=== PATIENT | female | born 1970 ===

== ENCOUNTER 2017-04-08 21:17 | Observation (INO) | payer OTHER ==
[2017-04-08] MEDS ORDERED: Sodium Chloride 0.9% 1,000 ML IV STA (23:58)
--- NOTE | 2017-04-09 | ED PDOC ---
Arrival/HPI - General Chief Complaint: Dizziness/Lightheaded Time Seen by Provider: 04/08/17 22:48 Historian: Patient - History of Present Illness Narrative History of Present Illness (Text): 04/09/17 00:01 46 y/o female, no pmh, nkda, [id number], c/ o dizziness/shortness of breath and near syncope x 4-5 hours. Pt. 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 Pt. has no chest pain or palpitation but feeling like about to pass out. Pt. has no slurred speech, no headache, no numbness or tingling, no sudden weakness, no other medical or psychological complaints. Past Medical History - Provider Review Nursing Documentation Reviewed: Yes - Psychiatric Hx Psychophysiologic Disorder: No Hx Substance Use: No Family/Social History - Physician Review Nursing Documentation Reviewed: Yes Family/Social History: Unknown Family HX Smoking Status: Never Smoked Hx Alcohol Use: No Hx Substance Use: No Allergies/Home Meds Allergies/Adverse Reactions: Allergies No Known Allergies Allergy (Verified 04/08/17 23:57) Review of Systems - Review of Systems Constitutional: absent: Fatigue, Fevers Eyes: absent: Vision Changes Respiratory: SOB. absent: Cough, Sputum Cardiovascular: absent: Chest Pain Gastrointestinal: absent: Abdominal Pain, Diarrhea, Nausea, Vomiting Musculoskeletal: absent: Arthralgias, Back Pain, Myalgias Neurological: Dizziness. absent: Focal Weakness, Gait Changes, Speech Changes, Facial Droop, Seizure Physical Exam Vital Signs Reviewed: Yes Vital Signs Pulse Resp BP Pulse Ox 04/09/17 04:33 69 16 111/66 99 04/09/17 02:13 72 16 99 04/08/17 23:48 81 16 137/86 99 04/08/17 23:17 81 16 137/86 99 Temperature: Afebrile Blood Pressure: Normal Pulse: Regular Respiratory Rate: Normal Appearance: Positive for: Well-Appearing, Non-Toxic, Comfortable Pain Distress: None Mental Status: Positive for: Alert and Oriented X 3 - Systems Exam Head: Present: Atraumatic, Normocephalic Pupils: Present: PERRL Extroacular Muscles: Present: EOMI Conjunctiva: Present: Normal Mouth: Present: Moist Mucous Membranes Neck: Present: Normal Range of Motion Respiratory/Chest: Present: Clear to Auscultation, Good Air Exchange. No: Respiratory Distress, Accessory Muscle Use Cardiovascular: Present: Regular Rate and Rhythm, Normal S1, S2. No: Murmurs Abdomen: Present: Normal Bowel Sounds. No: Tenderness, Distention, Peritoneal Signs Back: Present: Normal Inspection Upper Extremity: Present: Normal Inspection. No: Cyanosis, Edema Lower Extremity: Present: Normal Inspection. No: Edema Neurological: Present: GCS=15, CN II-XII Intact, Speech Normal, Motor Func Grossly Intact, Gait Normal, Memory Normal Skin: Present: Warm, Dry, Normal Color. No: Rashes Psychiatric: Present: Alert, Oriented x 3, Normal Insight, Normal Concentration Medical Decision Making ED Course and Treatment: 04/09/17 00:07 -labs/ua/cardiac troponin -ekg/chest xray -CT head -IVF/aspirin lorena give after the negative CT head for bleed -NIHSS is: 0, not a candidate for TPA 04/09/17 04:06 -EKG:NSR @ 66 BPM, no ST elevation or depression, no T wave inversion. -Chest x-ray show no active disease -CT head show no acute findings, aspiring 325mg po ordered -Labs are non-significant, 1st set of troponin is negative, will need 24 hours cardiac enzymes. -I explained to the patient and she agreed to be observed over night. -Dr. Mccauley spoke to Dr. Baugh and agreed to follow up the case. Dr. Mccauley will put in the admission order. -I spoke to Dr. Jones, territory sales manager medical, will come to evaluate the patient - Lab Interpretations Lab Results: 04/08/17 23:59 04/08/17 23:59 Lab Results 04/09/17 03:02: Urine Color Yellow, Urine Appearance Sl cloudy, Urine pH 6.0, Ur Specific [place] 1.015, Urine Protein Trace H, Urine Glucose (UA) Negative, Urine Ketones Negative, Urine Blood Large H, Urine Nitrate Negative, Urine Bilirubin Negative, Urine Urobilinogen 0.2, Ur Leukocyte Esterase Negative, Urine RBC 1 - 3, Urine WBC 0 - 2, Ur Epithelial Cells 3 - 4, Urine Bacteria Small 04/08/17 23:59: Sodium 141, Potassium 4.2, Chloride 102, Carbon Dioxide 26, Anion Gap 17, BUN 13, Creatinine 0.7, Est GFR ( Amer) > 60, Est GFR (Non- Af Amer) > 60, Random Glucose 78, Calcium 9.5, Total Bilirubin 0.5, AST 44 H, ALT 42, Alkaline Phosphatase 100, Lactate Dehydrogenase 501, Total Creatine Kinase 167, Troponin I < 0.01, Total Protein 9.0 H, Albumin 4.9 H, Globulin 4.1 , Albumin/Globulin Ratio 1.2 04/08/17 23:59: WBC 9.4, RBC 4.44, Hgb 13.5, Hct 38.6, MCV 86.9, MCH 30.4, MCHC 35.0, RDW 12.6, Plt Count 277, MPV 9.9, Gran % 65.1, Lymph % (Auto) 25.0, Pender % (Auto) 6.3 H, Eos % (Auto) 3.5, Baso % (Auto) 0.1, Gran # 6.14, Lymph # 2.4, Pender # 0.6, Eos # 0.3, Baso # 0.01 I have reviewed the lab results: Yes Interpretation: No clinic. lab abnormalty - RAD Interpretation Radiology Orders: 04/08/17 23:58 HEAD W/O CONTRAST [CT] Stat CHEST PORTABLE [RAD] Stat CT Head: FINDINGS: Brain: No intracranial hemorrhage. No mass. No definite edema. Ventricles: No hydrocephalus. Bones/joints: No acute fracture. Soft tissues: Unremarkable. Sinuses: No acute sinusitis. Mastoid air cells: No mastoid effusion. Orbits: Unremarkable as visualized. IMPRESSION: 1. No acute intracranial abnormality. 2. Incidental/non-acute findings are described above. Thank you for allowing us to participate in the care of your patient. Dictated and Authenticated by: Niall Dodson MD 04/09/2017 3:55 AM Eastern Time ([place] & [place]) Chest x-ray: no acute infiltrate. Bathroom Tiling Professional: Radiologist - EKG Interpretation EKG Interpretation (Text): 04/09/17 01:54 NSR @ 66 BPM, no ST elevation or depression, no T wave inversion. Interpreted by ED Physician: Yes Type: 12 lead EKG Comparison: No previous EKG avail. - Medication Orders Current Medication Orders: Discontinued Medications Aspirin (Aspirin) 325 mg PO STAT STA Stop: 04/09/17 03:57 Last Admin: 04/09/17 04:40 Dose: 325 mg Sodium Chloride (Sodium Chloride 0.9%) 1,000 mls @ 999 mls/hr IV .Q1H1M STA Stop: 04/09/17 00:58 Last Admin: 04/09/17 01:02 Dose: 999 mls/hr Sodium Chloride (Sodium Chloride 0.9%) 1,000 mls @ 150 mls/hr IV .Q6H40M [facility] Last Admin: 04/09/17 06:22 Dose: 150 mls/hr Pantoprazole Sodium (Protonix Inj) 40 mg IVP DAILY [facility] Last Admin: 04/10/17 09:43 Dose: 40 mg NIHSS Scale (Ong) Time Performed: 00:07 - How Severe is the Stoke Baseline Level of Consciousness: 0=Alert LOC to Questions: 0=Both comments correct LOC to commands: 0=Obeys both correctly Best Gaze: 0=Normal Visual: 0=No visual loss Facial: 0=Normal Motor Arm - Left: 0=No drift Motor Arm - Right: 0=No drift Motor Leg - Left: 0=No drift Motor Leg - Right: 0=No drift Limb Ataxia: 0=Absent Sensory: 0=Normal Best Language: 0=No aphasia Dysarthia: 0=Normal articulation Extinction & Inattention (Neglect): 0=Normal, no object Score: 0 Risk Level: No Stroke Risk - PA / PUBLIC HOUSING MANAGER / Resident Statement MD/DO has reviewed & agrees with the documentation as recorded. MD/DO has examined the patient and agrees with the treatment plan. Disposition/Present on Arrival - Present on Arrival Any Indicators Present on Arrival: No History of DVT/PE: No History of Uncontrolled Diabetes: No Urinary Catheter: No History of Decub. Ulcer: No History Surgical Site Infection Following: None - Disposition Have Diagnosis and Disposition been Completed?: Yes Diagnosis: Near syncope, Shortness of breath, Dizziness Disposition: HOSPITALIZED Disposition Time: 00:09 Patient Plan: Observation, Telemetry Condition: STABLE
[2017-04-09 00:59] LABS: BASO # 0.01 K/mm3 (0.0-2.0); BASO % 0.1 % (0.0-3.0); EOS # 0.3 (0.0-0.7); EOS % 3.5 % (1.5-5.0); GRAN # 6.14 (1.4-6.5); GRAN % 65.1 % (50.0-68.0); HEMOGLOBIN 13.5 gm/dL (12.0-16.0); LYMPH # 2.4 (1.2-3.4); MEAN CELL VOLUME 86.9 fL (80.0-105.0); MEAN CORPUSCULAR HEMOGLOBIN 30.4 pg (25.0-35.0); MEAN PLATELET VOLUME 9.9 fl (7.0-11.0); MONO # 0.6 (0.1-0.6); MONO % 6.3 % (1.0-6.0); PLATELET COUNT 277 10^3/uL (120.0-450.0); RBC 4.44 10^6/uL (3.5-6.1); RED CELL DISTRIBUTION WIDTH 12.6 % (11.5-14.5); WHITE BLOOD COUNT 9.4 10^3/ul (4.5-11.0)
[2017-04-09 01:10] LABS: ALB/GLOB RATIO 1.2 (1.1-1.8); ALBUMIN 4.9 g/dL (3.0-4.8); ALT/SGPT 42 U/L (7-56); AST/SGOT 44 U/L (15-39); BLOOD UREA NITROGEN 13 mg/dL (7-21); CALCIUM 9.5 mg/dL (8.4-10.5); GFR AFRICAN-AMERICAN > 60; GFR NON-AFRICAN AMERICAN > 60
[2017-04-09 01:26] LABS: TROPONIN I < 0.01 ng/mL
--- NOTE | 2017-04-09 03:56 | CT ---
EXAM: CT Head Without Intravenous Contrast CLINICAL HISTORY: 46 years old, female; Signs and symptoms; Syncope and collapse; Additional info: Near syncope x 4-5 hours TECHNIQUE: Axial computed tomography images of the head/brain without intravenous contrast. This CT exam was performed using one or more of the following dose reduction techniques: automated exposure control, adjustment of the mA and/or kV according to patient size, and/or use of iterative reconstruction technique. COMPARISON: No relevant prior studies available. FINDINGS: Brain: No intracranial hemorrhage. No mass. No definite edema. Ventricles: No hydrocephalus. Bones/joints: No acute fracture. Soft tissues: Unremarkable. Sinuses: No acute sinusitis. Mastoid air cells: No mastoid effusion. Orbits: Unremarkable as visualized. IMPRESSION: 1. No acute intracranial abnormality. 2. Incidental/non-acute findings are described above.
[2017-04-09 04:13] LABS: URINE BILIRUBIN NEGATIVE (NEGATIVE); URINE BLOOD LARGE (NEGATIVE); URINE GLUCOSE (UA) NEGATIVE (NEGATIVE); URINE LEUKOCYTE ESTERASE NEGATIVE Leu/uL (NEGATIVE); URINE NITRATE NEGATIVE (NEGATIVE); URINE PROTEIN TRACE mg/dL (<30 mg/dL); URINE UROBILINOGEN 0.2 E.U./dL (<1 E.U./dL)
[2017-04-09 04:18] LABS: URINE APPEARANCE SL CLOUDY (CLEAR); URINE COLOR YELLOW (YELLOW)
[2017-04-09 04:23] LABS: URINE BACTERIA SMALL (NEG); URINE WBC 0 - 2 /hpf (0-6)
[2017-04-09] MEDS ORDERED: Sodium Chloride 0.9% 1,000 ML IV SCH (05:15)
--- NOTE | 2017-04-09 05:36 | CP.PCM.HP ---
<MAXWELL GARZON - Last Filed: 04/09/17 05:48> History of Present Illness - History of Present Illness History of Present Illness: CC: Dizziness/Near Syncope HPI: Mrs. Cortes is a 46 year old female with no significant past medical history presented to the ED after she had an episode of dizziness at work. At around 2030, she was cleaning a machine and after standing in the same position for 20 minutes she states that the room started spinning. She was nauseous during this episode and vomited once, noted to be NBNB. She then went outside to get "some fresh air" and felt immediately better. 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 An EKG, CT Head and orthostatic vital signs were all normal in the ED. Currently, patient is asymptomatic. She denies any dizziness, fever, headache, changes in her vision, dysphagia, chest pain, palpitations, shortness of breath , N/V or abdominal pain. PMH: None PSH: "Tubes tied" in [facility] approx. 20 years ago FH: Non-Contributory Social History: Denies tobacco, alcohol or illicit drug use Allergies: NKDA Home meds: none Present on Admission - Present on Admission Any Indicators Present on Admission: No Review of Systems - Review of Systems Review of Systems: Please refer to HPI Past Patient History - Past Social History Smoking Status: Never Smoked - PSYCHIATRIC Hx Psychophysiologic Disorder: No Hx Substance Use: No Meds Allergies/Adverse Reactions: Allergies Allergy/AdvReac Type Severity Reaction Status Date / Time No Known Allergies Allergy Verified 04/08/17 23:57 Physical Exam - Constitutional Appears: No Acute Distress - Head Exam Head Exam: NORMAL INSPECTION, NORMOCEPHALIC - Eye Exam Eye Exam: EOMI, Normal appearance - ENT Exam ENT Exam: Mucous Membranes Moist, Normal Exam - Neck Exam Neck exam: Positive for: Full Rom. Negative for: Tenderness - Respiratory Exam Respiratory Exam: Clear to Auscultation Bilateral, NORMAL BREATHING PATTERN. absent: Rales, Rhonchi, Wheezes, Respiratory Distress - Cardiovascular Exam Cardiovascular Exam: REGULAR RHYTHM, RRR, +S1, +S2. absent: Tachycardia, Systolic Murmur - GI/Abdominal Exam GI & Abdominal Exam: Normal Bowel Sounds, Soft. absent: Distended, Firm, Guarding, Tenderness - Extremities Exam Extremities exam: Positive for: normal capillary refill, pedal pulses present. Negative for: calf tenderness, pedal edema, tenderness - Neurological Exam Neurological exam: Alert, CN II-XII Intact, Oriented x3 - Psychiatric Exam Psychiatric exam: Normal Affect, Normal Mood - Skin Skin Exam: Dry, Intact, Normal Color, Warm Results - Vital Signs Recent Vital Signs: Last Vital Signs Temp Pulse 69 04/09/17 04:33 Resp 16 04/09/17 04:33 BP 111/66 04/09/17 04:33 Pulse Ox 99 04/09/17 04:33 - Labs Result Diagrams: 04/08/17 23:59 04/08/17 23:59 Assessment & Plan - Assessment and Plan (Free Text) Assessment: Mrs. Cortes is a 46 year old female with no significant past medical history presented to the ED after she had an episode of dizziness at work. Plan: 1. Dizziness -CT Head with no acute changes; no neurological deficits on physical exam -EKG showing NSR -Orthostatics done in ED were normal -given one dose of ASA 325 in ED -NIHSS Score:0 -IVF: NS@150 -Trops neg x1 -Will obtain orthostatics this AM as well as one more troponin and plan to DC based on those results 2. GI/DVT Prophylaxis -Protonix/scd's Patient seen and case discussed with attending, Dr. Baugh. - Date & Time Date: 04/09/17 Time: 05:00 Decision To Admit - Pt Status Changed To: Hospital Disposition Of: Observation - . Bed Request Type: Remote Telemetry <Quincy Baugh P - Last Filed: 04/09/17 07:12> Results - Vital Signs Recent Vital Signs: Last Vital Signs Temp 97.8 F 04/09/17 06:00 Pulse 66 04/09/17 06:00 Resp 18 04/09/17 06:00 BP 138/68 04/09/17 06:00 Pulse Ox 98 04/09/17 06:00 - Labs Result Diagrams: 04/08/17 23:59 04/08/17 23:59 Attending/Attestation - Attestation I have personally seen and examined this patient.: Yes I have fully participated in the care of the patient.: Yes I have reviewed all pertinent clinical information: Yes Notes (Text): Assessment * Dizziness accompanied with nause/vomiting about 20 min while working in standing position for about 20-30 mins, without syncope * Negative w/u in ER * Mild hemoconcentration suspected as albumin 4.9 Plan * Observe * IVF * Check trop * Orthostatics
[2017-04-09 05:53] VITALS: BMI 34.3
[2017-04-09 07:29] LABS: BASO # 0.02 K/mm3 (0.0-2.0); BASO % 0.3 % (0.0-3.0); EOS # 0.4 (0.0-0.7); EOS % 4.6 % (1.5-5.0); GRAN # 4.94 (1.4-6.5); GRAN % 61.7 % (50.0-68.0); HEMOGLOBIN 12.1 gm/dL (12.0-16.0); LYMPH # 2.1 (1.2-3.4); LYMPH % 26.4 % (22.0-35.0); MEAN CELL VOLUME 87.2 fL (80.0-105.0); MEAN CORPUSCULAR HEMOGLOBIN 30.3 pg (25.0-35.0); MEAN CORPUSCULAR HGB CONC 34.8 g/dl (31.0-37.0); MEAN PLATELET VOLUME 9.9 fl (7.0-11.0); MONO # 0.6 (0.1-0.6); PLATELET COUNT 259 10^3/uL (120.0-450.0); RBC 3.99 10^6/uL (3.5-6.1); RED CELL DISTRIBUTION WIDTH 12.6 % (11.5-14.5)
--- NOTE | 2017-04-09 08:38 | RAD ---
HISTORY: medical clearance COMPARISON: No prior. FINDINGS: LUNGS: No defecate infiltrate or pleural effusion identified. Right hemidiaphragm elevation is noted crowding the bronchograms markings at the right base somewhat. PLEURA: No significant pleural effusion identified, no pneumothorax apparent. CARDIOVASCULAR: Cardiac silhouette appears technically magnified or mildly enlarged intrinsically. OSSEOUS STRUCTURES: No significant abnormalities. VISUALIZED UPPER ABDOMEN: Normal. OTHER FINDINGS: None. IMPRESSION: No acute infiltrate or pleural effusion. Right hemidiaphragm appears elevated. Portable technique likely technically magnifies cardiac silhouette though an element cardiomegaly is not completely excluded.
[2017-04-09 09:32] LABS: ALB/GLOB RATIO 1.3 (1.1-1.8); ALT/SGPT 36 U/L (7-56); AST/SGOT 34 U/L (15-39); BLOOD UREA NITROGEN 10 mg/dL (7-21); CALCIUM 8.6 mg/dL (8.4-10.5); GFR AFRICAN-AMERICAN > 60; GFR NON-AFRICAN AMERICAN > 60
--- NOTE | 2017-04-09 10:07 | CARD ---
APPROVED REPORT EKG Measurement Heart [id number] <Conclusion> Normal sinus rhythm RVCD Prolonged QTc
[2017-04-09 10:21] LABS: TROPONIN I < 0.01 ng/mL
[2017-04-09 18:51] LABS: D DIMER 0.35 mg/L FEU (0-0.50); INR 0.93 (0.93-1.08); PARTIAL THROMBOPLASTIN TIME 25.7 Seconds (23.7-30.8)
--- NOTE | 2017-04-09 21:52 | CON ---
DATE: 04/09/2017 REASON FOR CONSULTATION: Dizziness. HISTORY OF PRESENT ILLNESS: The patient is a 46-year-old female, who has no known prior cardiac history. She presented because of dizziness and shortness of breath. The patient denies any fainting or collapsing to the floor. The patient stated that she has been going through stress at work, however, she has no over consumption of caffeinated beverages. The patient denies any prior history of palpitation or dizziness. The patient was documented to have what appeared to be wide complex tachycardia on the monitor, however, as per careful of the strip, it was concluded it was an artifact, and I did document that on the *------* strip paper. SOCIAL HISTORY: The patient is a nonsmoker. MEDICATIONS: Protonix 40 mg intravenous twice a day, normal saline at 150 mL an hour. PHYSICAL EXAMINATION GENERAL: The patient is a middle-aged female, who does not appear to be in distress. VITAL SIGNS: Blood pressure 124/78, heart rate 67, temperature 98.2, respirations 18. HEENT: Normocephalic. NECK: No JVD. CHEST: Clear. HEART: S1 and S2, regular. ABDOMEN: Soft. EXTREMITIES: No edema. LABORATORY DATA: SMA-7 is within normal limits. Two sets of troponins are negative. CBC, WBC 8, hemoglobin 12.1, hematocrit 34.8, platelet count 159,000. Head CT scan without contrast. No acute intracranial findings. EKG revealed normal sinus rhythm at the rate of 66. ASSESSMENT: Dizziness and near syncope. RECOMMENDATIONS: Continue current intravenous fluid infusion. Obtain an echocardiogram. PT, PTT, and D-dimer. Obtain TSH level. Kamar Rhodes MD
[2017-04-10 00:04] VITALS: RESP 20
[2017-04-10 06:09] VITALS: BP 104/68; TEMP 98.1; O2SAT 98
[2017-04-10 06:16] LABS: BASO # 0.02 K/mm3 (0.0-2.0); BASO % 0.3 % (0.0-3.0); EOS # 0.3 (0.0-0.7); EOS % 5.4 % (1.5-5.0); GRAN # 3.23 (1.4-6.5); HEMOGLOBIN 12.1 gm/dL (12.0-16.0); LYMPH # 2.3 (1.2-3.4); LYMPH % 36.2 % (22.0-35.0); MEAN CORPUSCULAR HEMOGLOBIN 29.6 pg (25.0-35.0); MEAN PLATELET VOLUME 9.9 fl (7.0-11.0); MONO # 0.5 (0.1-0.6); MONO % 7.1 % (1.0-6.0); PLATELET COUNT 248 10^3/uL (120.0-450.0); RBC 4.09 10^6/uL (3.5-6.1); RED CELL DISTRIBUTION WIDTH 12.8 % (11.5-14.5); WHITE BLOOD COUNT 6.3 10^3/ul (4.5-11.0)
[2017-04-10 07:21] LABS: ALB/GLOB RATIO 1.3 (1.1-1.8); ALBUMIN 3.9 g/dL (3.0-4.8); ALT/SGPT 40 U/L (7-56); AST/SGOT 29 U/L (15-39); BLOOD UREA NITROGEN 9 mg/dL (7-21); GFR AFRICAN-AMERICAN > 60; GFR NON-AFRICAN AMERICAN > 60
--- NOTE | 2017-04-10 09:48 | US ---
PROCEDURE: Bilateral carotid artery duplex ultrasound HISTORY: Carotid stenosis syncope PHYSICIAN(S): Evan Marroquin MD. TECHNIQUE: Duplex sonography and color-flow Doppler were used to evaluate the carotid bifurcations and limited segments of the vertebral arteries bilaterally. FINDINGS: There is mild smooth hypoechoic plaque noted at the carotid bifurcations bilaterally. The peak systolic velocity in the proximal right internal carotid artery is 65 cm/sec. This corresponds to a 0-19 percent proximal right ICA stenosis. Normal systolic velocities are noted in the proximal right external carotid artery. There is antegrade flow in the right vertebral artery. The peak systolic velocity in the proximal left internal carotid artery is 60 cm/sec. This corresponds to a 0-19 percent proximal left ICA stenosis. Normal systolic velocities are noted in the proximal left external carotid artery. There is antegrade flow in the left vertebral artery. IMPRESSION: 1. Bilateral 0-19 percent proximal ICA stenoses. 2. Antegrade flow in both vertebral arteries.
[2017-04-10 14:10] VITALS: PULSE 76
--- NOTE | 2017-04-10 22:40 | PN ---
The patient denies any dizziness. No reported ventricular arrhythmia. A preliminary report of echo revealed ejection fraction of 54.7 and right ventricular systolic pressure of 33 mmHg. PHYSICAL EXAM: VITAL SIGNS: Blood pressure 92/49, heart rate 72, temperature 98.1, respirations 20. HEENT: Normocephalic. CHEST: Clear. HEART: Sounds regular. ABDOMEN: Soft. EXTREMITIES: No edema. LABORATORY DATA: SMA-7 is within normal limits. Two sets of troponins are negative. TSH level and D-dimer are within normal limits. Carotid ultrasound: No significant disease, antegrade flow in both vertebral arteries. ASSESSMENT: Dizziness and near-syncope. RECOMMENDATIONS: Case was discussed with Dr. Joiner. No further cardiac workup. If the patient continues to be symptomatic, consider a tilt table test as an outpatient. Kamar Rhodes MD
--- NOTE | 2017-04-11 09:26 | CARD ---
APPROVED REPORT EXAM: Two-dimensional and M-mode echocardiogram with Doppler and color Doppler. Other Information Quality : AverageRhythm : INDICATION DIZZINESS 2D DIMENSIONS Left Atrium (2D)2.8 (1.6-4.0cm)IVSd1.1 (0.7-1.1cm) LVDd4.5 (3.9-5.9cm)PWd1.1 (0.7-1.1cm) LVDs3.3 (2.5-4.0cm)FS (%) 28.2 % LVEF (%)54.0 (>50%) M-Mode DIMENSIONS Aortic Root2.50 (2.2-3.7cm)Aortic Cusp Exc.1.60 (1.5-2.0cm) Aortic Valve AoV Peak Nixbswow493.0cm/s Mitral Valve MV E Mtonefnf882.0cm/sMV A Ynnzwvhu34.1cm/sE/A ratio1.3 TDI E/Lateral E'0.0E/Medial E'0.0 Tricuspid Valve TR Peak [id number]/sRAP [id number] Peak Gr.23mmHg [id number] LEFT VENTRICLE The left ventricle is normal size. There is normal left ventricular wall thickness. The left ventricular function is normal. The left ventricular ejection fraction is within the normal range. There is normal LV segmental wall motion. RIGHT VENTRICLE The right ventricle is normal size. ATRIA The left atrium size is normal. The right atrium size is normal. The interatrial septum is intact with no evidence for an atrial septal defect. AORTIC VALVE The aortic valve is normal in structure. MITRAL VALVE The mitral valve is normal in structure. Mitral regurgitation is trace. TRICUSPID VALVE The tricuspid valve is normal in structure. There is trace tricuspid regurgitation. PULMONIC VALVE The pulmonic valve is not well visualized. GREAT VESSELS The aortic root is normal in size. PERICARDIAL EFFUSION There is no pericardial effusion. <Conclusion> The left ventricle is normal size. There is normal left ventricular wall thickness. The left ventricular function is normal.
--- NOTE | 2017-04-11 21:27 | CP.PCM.DIS ---
<Cande Beavers - Last Filed: 04/11/17 21:30> Provider - Provider Date of Admission: 04/09/17 04:10 Attending physician: Alber Joiner MD Time Spent in preparation of Discharge (in minutes): 45 Hospital Course - Lab Results Lab Results: Most Recent Lab Values WBC 6.3 10^3/ul (4.5-11.0) D 04/10/17 05:40 RBC 4.09 10^6/uL (3.5-6.1) 04/10/17 05:40 Hgb 12.1 gm/dL (12.0-16.0) 04/10/17 05:40 Hct 35.6 % (36.0-48.0) L 04/10/17 05:40 MCV 87.0 fL (80.0-105.0) 04/10/17 05:40 MCH 29.6 pg (25.0-35.0) 04/10/17 05:40 MCHC 34.0 g/dl (31.0-37.0) 04/10/17 05:40 RDW 12.8 % (11.5-14.5) 04/10/17 05:40 Plt Count 248 10^3/uL (120.0-450.0) 04/10/17 05:40 MPV 9.9 fl (7.0-11.0) 04/10/17 05:40 Gran % 51.0 % (50.0-68.0) 04/10/17 05:40 Lymph % (Auto) 36.2 % (22.0-35.0) H 04/10/17 05:40 Hanson % (Auto) 7.1 % (1.0-6.0) H 04/10/17 05:40 Eos % (Auto) 5.4 % (1.5-5.0) H 04/10/17 05:40 Baso % (Auto) 0.3 % (0.0-3.0) 04/10/17 05:40 Gran # 3.23 (1.4-6.5) 04/10/17 05:40 Lymph # 2.3 (1.2-3.4) 04/10/17 05:40 Hanson # 0.5 (0.1-0.6) 04/10/17 05:40 Eos # 0.3 (0.0-0.7) 04/10/17 05:40 Baso # 0.02 K/mm3 (0.0-2.0) 04/10/17 05:40 PT 10.0 Seconds (9.9-11.8) 04/09/17 17:30 INR 0.93 (0.93-1.08) 04/09/17 17:30 APTT 25.7 Seconds (23.7-30.8) 04/09/17 17:30 D-Dimer, Quantitative 0.35 mg/L FEU (0-0.50) 04/09/17 17:30 Sodium 139 mmol/L (132-148) 04/10/17 06:00 Potassium 4.0 mmol/L (3.6-5.0) 04/10/17 06:00 Chloride 103 mmol/L (95-110) 04/10/17 06:00 Carbon Dioxide 24 mmol/L (21-33) 04/10/17 06:00 Anion Gap 16 (10-20) 04/10/17 06:00 BUN 9 mg/dL (7-21) 04/10/17 06:00 Creatinine 0.6 mg/dL (0.5-1.4) 04/10/17 06:00 Est GFR ( Amer) > 60 04/10/17 06:00 Est GFR (Non-Af Amer) > 60 04/10/17 06:00 Random Glucose 89 mg/dL (70-110) 04/10/17 06:00 Calcium 9.0 mg/dL (8.4-10.5) 04/10/17 06:00 Total Bilirubin 0.4 mg/dL (0.2-1.3) 04/10/17 06:00 AST 29 U/L (15-39) 04/10/17 06:00 ALT 40 U/L (7-56) 04/10/17 06:00 Alkaline Phosphatase 89 U/L (38-133) 04/10/17 06:00 Lactate Dehydrogenase 501 U/L (333-699) 04/08/17 23:59 Total Creatine Kinase 167 U/L (35-230) 04/08/17 23:59 Troponin I < 0.01 ng/mL 04/09/17 07:00 Total Protein 6.8 g/dL (5.8-8.3) 04/10/17 06:00 Albumin 3.9 g/dL (3.0-4.8) 04/10/17 06:00 Globulin 2.9 gm/dL 04/10/17 06:00 Albumin/Globulin Ratio 1.3 (1.1-1.8) 04/10/17 06:00 TSH 3rd Generation 2.58 mIU/mL (0.46-4.68) 04/09/17 17:30 Urine Color Yellow (YELLOW) 04/09/17 03:02 Urine Appearance Sl cloudy (CLEAR) 04/09/17 03:02 Urine pH 6.0 (4.7-8.0) 04/09/17 03:02 Ur Specific [place] 1.015 (1.005-1.035) 04/09/17 03:02 Urine Protein Trace mg/dL (<30 mg/dL) H 04/09/17 03:02 Urine Glucose (UA) Negative mg/dL (NEGATIVE) 04/09/17 03:02 Urine Ketones Negative mg/dL (NEGATIVE) 04/09/17 03:02 Urine Blood Large (NEGATIVE) H 04/09/17 03:02 Urine Nitrate Negative (NEGATIVE) 04/09/17 03:02 Urine Bilirubin Negative (NEGATIVE) 04/09/17 03:02 Urine Urobilinogen 0.2 E.U./dL (<1 E.U./dL) 04/09/17 03:02 Ur Leukocyte Esterase Negative Eve/uL (NEGATIVE) 04/09/17 03:02 Urine RBC 1 - 3 /hpf (0-2) 04/09/17 03:02 Urine WBC 0 - 2 /hpf (0-6) 04/09/17 03:02 Ur Epithelial Cells 3 - 4 /hpf (0-5) 04/09/17 03:02 Urine Bacteria Small (NEG) 04/09/17 03:02 - Hospital Course Hospital Course: 46 yo female without a significant PMH [place] [facility] [place] work. Preliminary labs and diagnostic test including, but not limited to EKG, cardiac enzymes, orthostatic blood pressures, Carotid doppler US , Echocardiogram, D-dimer, and CT scan of the head fortunately ruled out any cardiac, throboembolic, or neurologic phenomena that may have caused this presyncopal episode. Cardiology was consulted and cleared her prior to discharge. She was recommended to f/u with her PMD within the next two weeks to discuss or further evaluate the cause for her presyncopal episode. - Date & Time of H&P Date of H&P: 04/10/17 Time of H&P: 09:35 Discharge Exam - Head Exam Head Exam: NORMAL INSPECTION, NORMOCEPHALIC - Eye Exam Eye Exam: EOMI, Normal appearance Pupil Exam: PERRL - ENT Exam ENT Exam: Mucous Membranes Moist, Normal Oropharynx - Neck Exam Neck exam: Normal Inspection - Respiratory Exam Respiratory Exam: Clear to PA & Lateral. absent: Accessory Muscle Use - Cardiovascular Exam Cardiovascular Exam: RRR, +S1, +S2 - GI/Abdominal Exam GI & Abdominal Exam: Distended, Normal Bowel Sounds. absent: Mass, Rebound - Rectal Exam Rectal Exam: Deferred - Extremities Exam Extremities exam: calf tenderness - Back Exam Additional comments: no CVA tenderness - Neurological Exam Neurological exam: Alert, CN II-XII Intact, Oriented x3 - Psychiatric Exam Psychiatric exam: Normal Affect, Normal Mood - Skin Skin Exam: Normal Color Discharge Plan - Follow Up Plan Condition: STABLE Disposition: HOME/ ROUTINE Instructions: Near Syncope (ED) Additional Instructions: 1. [place] bastante agua, mantenga hydratacion. 2. Siga con doctor shukri necesite. 3. Cesar a un doctor o regrese a la shavonne de emergencias por cualquier otro problema. <Alber Joiner - Last Filed: 04/12/17 13:40> Provider - Provider Date of Admission: 04/09/17 04:10 Attending physician: Alber Joiner MD Hospital Course - Lab Results Lab Results: Most Recent Lab Values WBC 6.3 10^3/ul (4.5-11.0) D 04/10/17 05:40 RBC 4.09 10^6/uL (3.5-6.1) 04/10/17 05:40 Hgb 12.1 gm/dL (12.0-16.0) 04/10/17 05:40 Hct 35.6 % (36.0-48.0) L 04/10/17 05:40 MCV 87.0 fL (80.0-105.0) 04/10/17 05:40 MCH 29.6 pg (25.0-35.0) 04/10/17 05:40 MCHC 34.0 g/dl (31.0-37.0) 04/10/17 05:40 RDW 12.8 % (11.5-14.5) 04/10/17 05:40 Plt Count 248 10^3/uL (120.0-450.0) 04/10/17 05:40 MPV 9.9 fl (7.0-11.0) 04/10/17 05:40 Gran % 51.0 % (50.0-68.0) 04/10/17 05:40 Lymph % (Auto) 36.2 % (22.0-35.0) H 04/10/17 05:40 Hanson % (Auto) 7.1 % (1.0-6.0) H 04/10/17 05:40 Eos % (Auto) 5.4 % (1.5-5.0) H 04/10/17 05:40 Baso % (Auto) 0.3 % (0.0-3.0) 04/10/17 05:40 Gran # 3.23 (1.4-6.5) 04/10/17 05:40 Lymph # 2.3 (1.2-3.4) 04/10/17 05:40 Hanson # 0.5 (0.1-0.6) 04/10/17 05:40 Eos # 0.3 (0.0-0.7) 04/10/17 05:40 Baso # 0.02 K/mm3 (0.0-2.0) 04/10/17 05:40 PT 10.0 Seconds (9.9-11.8) 04/09/17 17:30 INR 0.93 (0.93-1.08) 04/09/17 17:30 APTT 25.7 Seconds (23.7-30.8) 04/09/17 17:30 D-Dimer, Quantitative 0.35 mg/L FEU (0-0.50) 04/09/17 17:30 Sodium 139 mmol/L (132-148) 04/10/17 06:00 Potassium 4.0 mmol/L (3.6-5.0) 04/10/17 06:00 Chloride 103 mmol/L (95-110) 04/10/17 06:00 Carbon Dioxide 24 mmol/L (21-33) 04/10/17 06:00 Anion Gap 16 (10-20) 04/10/17 06:00 BUN 9 mg/dL (7-21) 04/10/17 06:00 Creatinine 0.6 mg/dL (0.5-1.4) 04/10/17 06:00 Est GFR ( Amer) > 60 04/10/17 06:00 Est GFR (Non-Af Amer) > 60 04/10/17 06:00 Random Glucose 89 mg/dL (70-110) 04/10/17 06:00 Calcium 9.0 mg/dL (8.4-10.5) 04/10/17 06:00 Total Bilirubin 0.4 mg/dL (0.2-1.3) 04/10/17 06:00 AST 29 U/L (15-39) 04/10/17 06:00 ALT 40 U/L (7-56) 04/10/17 06:00 Alkaline Phosphatase 89 U/L (38-133) 04/10/17 06:00 Lactate Dehydrogenase 501 U/L (333-699) 04/08/17 23:59 Total Creatine Kinase 167 U/L (35-230) 04/08/17 23:59 Troponin I < 0.01 ng/mL 04/09/17 07:00 Total Protein 6.8 g/dL (5.8-8.3) 04/10/17 06:00 Albumin 3.9 g/dL (3.0-4.8) 04/10/17 06:00 Globulin 2.9 gm/dL 04/10/17 06:00 Albumin/Globulin Ratio 1.3 (1.1-1.8) 04/10/17 06:00 TSH 3rd Generation 2.58 mIU/mL (0.46-4.68) 04/09/17 17:30 Urine Color Yellow (YELLOW) 04/09/17 03:02 Urine Appearance Sl cloudy (CLEAR) 04/09/17 03:02 Urine pH 6.0 (4.7-8.0) 04/09/17 03:02 Ur Specific [place] 1.015 (1.005-1.035) 04/09/17 03:02 Urine Protein Trace mg/dL (<30 mg/dL) H 04/09/17 03:02 Urine Glucose (UA) Negative mg/dL (NEGATIVE) 04/09/17 03:02 Urine Ketones Negative mg/dL (NEGATIVE) 04/09/17 03:02 Urine Blood Large (NEGATIVE) H 04/09/17 03:02 Urine Nitrate Negative (NEGATIVE) 04/09/17 03:02 Urine Bilirubin Negative (NEGATIVE) 04/09/17 03:02 Urine Urobilinogen 0.2 E.U./dL (<1 E.U./dL) 04/09/17 03:02 Ur Leukocyte Esterase Negative Eve/uL (NEGATIVE) 04/09/17 03:02 Urine RBC 1 - 3 /hpf (0-2) 04/09/17 03:02 Urine WBC 0 - 2 /hpf (0-6) 04/09/17 03:02 Ur Epithelial Cells 3 - 4 /hpf (0-5) 04/09/17 03:02 Urine Bacteria Small (NEG) 04/09/17 03:02 Attending/Attestation - Attestation I have personally seen and examined this patient.: Yes I have fully participated in the care of the patient.: Yes I have reviewed all pertinent clinical information, including history, physical exam and plan: Yes Notes (Text): 04/10/17 46 year old female with no significant past medical history who presented with dizziness/near syncopal episose. CT head was negative for acute findings. Carotid dopplers and echocardiogram were also reviewed as above and cardiac enzymes were negative. She was seen by cardiology. Her symptoms improved. She is discharged home to follow up with her pmd. Alber Joiner MD Hospitalist.
== END 2017-04-10 16:58 | disposition home or self-care (01) ==
LOC: ED 21:17 → ERH 04-09 04:10 → 2RNO 04-09 05:30
PROVIDERS: ADMIT Internal Medicine; ATTEND Internal Medicine
DX: R42 Dizziness and giddiness (principal); R55 Syncope and collapse; R06.02 Shortness of breath
CPT/HCPCS: 36415; 70450; 71010; 80053; 81001; 82550; 83615; 84443; 84484; 85025; 85378; 85610; 85730; 92610; 93005; 93306; 93880; 99285; C9113; G0378; G8996; G8997; G8998; J7040

== ENCOUNTER 2017-11-25 21:15 | Emergency (ER) | payer OTHER ==
[2017-11-25 21:56] VITALS: BMI 37.0
--- NOTE | 2017-11-25 22:13 | ED PDOC ---
Arrival/HPI - General Chief Complaint: Eye Problem Time Seen by Provider: 11/25/17 22:06 Historian: Patient - History of Present Illness Narrative History of Present Illness (Text): 11/25/17 22:36 Jaelyn Cortes is a 47 yr old female presents to the ER complaining of left eye swelling after she hit her eye at work with a ladder while trying to retrieve a broom from underneath it. Pt says he didn't lose consciousness or change in vision nor did she have any significant pain, just swelling. 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 Denies headache, blurry vision, bleeding, unsteady gait, dizziness or any other complaints. She does not have a PMD. Translation service with [employer] #[id number] for Italian was utilized. 11/25/17 22:48 Time/Duration: 4-6 hours Symptom Onset: Sudden Symptom Course: Improving Quality: Pressure Severity Level: 2 Activities at Onset: Light Context: Work Past Medical History - Provider Review Nursing Documentation Reviewed: Yes - Travel History Have you recently traveled outside [place] w/in the past 3 mons?: No - Past History Past History: No Previous - Infectious Disease Hx of Infectious Diseases: None - Cardiac Hx Cardiac Disorders: No - Pulmonary Hx Respiratory Disorders: No - Neurological Hx Neurological Disorder: No - HEENT Hx HEENT Disorder: No - Renal Hx Renal Disorder: No - Endocrine/Metabolic Hx Endocrine Disorders: No - Hematological/Oncological Hx Blood Disorders: No - Integumentary Hx Dermatological Disorder: No - Musculoskeletal/Rheumatological Hx Musculoskeletal Disorders: No Hx Falls: No - Gastrointestinal Hx Gastrointestinal Disorders: No - Genitourinary/Gynecological Hx Genitourinary Disorders: No - Psychiatric Hx Psychophysiologic Disorder: No Hx Substance Use: No - Surgical History Hx Tubal Ligation: Yes - Anesthesia Hx Anesthesia: No Family/Social History - Physician Review Nursing Documentation Reviewed: Yes Family/Social History: Unknown Family HX Smoking Status: Never Smoked Hx Alcohol Use: No Hx Substance Use: No Allergies/Home Meds Allergies/Adverse Reactions: Allergies No Known Allergies Allergy (Verified 04/08/17 23:57) Review of Systems - Physician Review All systems were reviewed & negative as marked: Yes - Review of Systems Constitutional: Normal Eyes: Normal, Eye Pain (periorbital) ENT: Normal Respiratory: Normal Cardiovascular: Normal Gastrointestinal: Normal Genitourinary Female: Normal Musculoskeletal: Normal Skin: Normal Neurological: Normal Endocrine: Normal Hemo/Lymphatic: Normal Psychiatric: Normal Physical Exam Vital Signs Reviewed: Yes Vital Signs Temp Pulse Resp BP Pulse Ox 11/25/17 23:45 97.9 F 67 18 135/94 H 99 Temperature: Afebrile Blood Pressure: Normal Pulse: Regular Respiratory Rate: Normal Appearance: Positive for: Well-Appearing, Non-Toxic, Comfortable Pain Distress: Mild Mental Status: Positive for: Alert and Oriented X 3 - Systems Exam Head: Present: Atraumatic, Normocephalic Pupils: Present: PERRL. No: Sluggish, Non-Reactive, Pinpoint, Other Extroacular Muscles: Present: EOMI. No: Gaze Palsy, Entrapment, Other Conjunctiva: Present: Normal, Injected. No: Icteric, Other Mouth: Present: Moist Mucous Membranes Nose (External): Present: Atraumatic Nose (Internal): Present: Normal Inspection, No Active Bleeding Neck: Present: Normal Range of Motion Respiratory/Chest: Present: Clear to Auscultation, Good Air Exchange. No: Respiratory Distress, Accessory Muscle Use Cardiovascular: Present: Regular Rate and Rhythm, Normal S1, S2. No: Murmurs Abdomen: Present: Normal Bowel Sounds. No: Tenderness, Distention, Peritoneal Signs Back: Present: Normal Inspection. No: CVA Tenderness, Midline Tenderness, Paraspinal Tenderness, Pain with Leg Raise, Decubitus Ulcer, Other Upper Extremity: Present: Normal Inspection. No: Cyanosis, Edema Lower Extremity: Present: Normal Inspection. No: Edema Neurological: Present: GCS=15, CN II-XII Intact, Speech Normal Skin: Present: Warm, Dry, Normal Color. No: Rashes Psychiatric: Present: Alert, Oriented x 3, Normal Insight, Normal Concentration Medical Decision Making ED Course and Treatment: 11/25/17 22:43 Impression Jaelyn Cortes is a 47 yr old female presents to the ER complaining of left eye swelling after she hit her eye at work with a ladder while trying to retrieve a broom from underneath it while at work. On exam, left sclera is mildly injected, periorbital swelling with a mild abrasion on the left zygomatic arch, good EOM and PERRLA bilat Plan ct maxofacial assess and dispo Progress Note Advised pt of negative CT results and discharged home with Rx for ibuprofen 600 mg if she requires it for pain and inflammation; advised to use ice/gel pack over eye to reduce swelling - RAD Interpretation Radiology Orders: 11/25/17 22:47 MAXILLOFACIAL W/O CONTRAST [CT] Stat Disposition/Present on Arrival - Present on Arrival Any Indicators Present on Arrival: Yes History of DVT/PE: No History of Uncontrolled Diabetes: No Urinary Catheter: No History of Decub. Ulcer: No History Surgical Site Infection Following: None - Disposition Have Diagnosis and Disposition been Completed?: Yes Diagnosis: Eye contusion Disposition: HOME/ ROUTINE Disposition Time: 00:18 Patient Plan: Discharge Condition: GOOD Discharge Instructions (ExitCare): Eye Contusion (DC) Additional Instructions: Dear Jaelyn, We have assessed you for left eye trauma today. There is no fracture or blood accumulation in and around the eye, therefore you are advised to return to work. Please follow the instructions for home care that we have provided you. If you experience any change in your vision or severe headache in the next 24 hrs, return to the ER. Take care and be well Prescriptions: Ibuprofen [Motrin Tab] 600 mg PO Q6 PRN 5 Days #20 tab PRN Reason: pain/fever Referrals: [facility], [Non-Staff] - Follow up with primary Forms: [facility] (Turkish)
[2017-11-25 23:45] VITALS: BP 135/94; PULSE 67; RESP 18; TEMP 97.9; O2SAT 99
--- NOTE | 2017-11-26 08:47 | CT ---
PROCEDURE: CT MAXILLOFACIAL BONES WITHOUT CONTRAST HISTORY: injury COMPARISON: None TECHNIQUE: Contiguous axial CT images of the maxillofacial bones were obtained. Coronal and sagittal reformats were generated. Radiation dose: Total exam DLP = 826 mGy-cm. This CT exam was performed using one or more of the following dose reduction techniques: Automated exposure control, adjustment of the mA and/or kV according to patient size, and/or use of iterative reconstruction technique. FINDINGS: NASAL BONES: Unremarkable. ORBITS: Unremarkable. PARANASAL SINUSES/ MASTOIDS: Clear. MAXILLA: Unremarkable. MANDIBLE/ TEMPOROMANDIBULAR JOINTS: Unremarkable. SKULL BASE: Unremarkable. TEMPORAL BONES: Middle ears and mastoid grossly unremarkable. OTHER FINDINGS: The report concurs with the preliminary [facility] report IMPRESSION: No evidence of fracture
== END 2017-11-26 00:37 | disposition home or self-care (01) ==
LOC: ED 21:15
DX: S05.12XA Contusion of eyeball and orbital tissues, left eye, initial encounter (principal); W22.8XXA Striking against or struck by other objects, initial encounter; Y99.0 Civilian activity done for income or pay